=== PATIENT | female | born 1945 | race Caucasian/White ===

== ENCOUNTER 2017-12-12 09:30 | Inpatient (IN) | payer OTHER, MEDICARE ==
--- NOTE | 2017-12-11 21:20 | GHP ---
[f rep st] PREOP HISTORY AND PHYSICAL DATE OF ADMISSION: 12/12/2017 PROBLEM: Left hip arthritis. HISTORY OF PRESENT ILLNESS: The patient is a 72-year-old woman admitted for a left total hip arthroplasty. She lives in [place], [place]. She is having daily pain. She gets intermittent sharp jabbing pains. She occasionally has night pain. She does not take any pain medication. She exercises on her own on an elliptical machine. She has been told that she has some arthritis in her knees. PAST MEDICAL HISTORY: Excellent general health. No history of heart disease, stents, DVT, hepatitis, MRSA staph infections, sleep apnea, or bleeding problems. CURRENT MEDICATIONS: None. DRUG ALLERGIES: Sulfa. METAL ALLERGIES: None. LATEX ALLERGY: Yes. SOCIAL HISTORY: The patient is single. She does not smoke cigarettes or drink alcohol. She is retired. FAMILY HISTORY: Positive for arthritis and cancer. PHYSICAL EXAMINATION: VITAL SIGNS: Height 5 feet 4 inches. Weight 140 pounds. BMI 24. EYES: Conjunctivae and sclerae are clear. Pupils are round and reactive. MOUTH: Good oral hygiene. No loose teeth. CHEST: Clear. HEART: Regular rhythm. No murmurs. EXTREMITIES: Pertinent findings are limited to her left hip. She has full hip extension and 100 degrees of flexion. External rotation 20 degrees. Internal rotation 10 degrees. Abduction 30 degrees. Her films show severe degenerative arthritis of her left hip. She is bone on bone. Peripheral osteophytes are present. She might have minor narrowing of the cartilage space in her right hip. IMPRESSION ON ADMISSION: Left hip advanced degenerative arthritis. PLAN: She will undergo a left total hip arthroplasty. The surgery has been described to her, including the risks, complications, expectations, and recovery time. I have talked to her about the risk of dislocation, leg length inequality, infection, and sciatic nerve injury. The recovery time and rehabilitation have been reviewed with her. All her questions have been answered, and she consents to surgery. Copy requested to: [place], [place] /[id number]/MODL MTDD
[2017-12-12] MEDS ORDERED: TRANEXAMIC ACID 1,000 MG in NS 100 ML IV ONE (09:44)
[2017-12-12] MEDS ORDERED: ACETAMINOPHEN 325 MG TAB PO ONE (09:44)
[2017-12-12] MEDS ORDERED: TRANEXAMIC ACID 3,000 MG in NS (SYRINGE) 50 ML IRR ONE (09:44)
[2017-12-12] MEDS ORDERED: GABAPENTIN 300 MG CAP PO ONE (09:44)
[2017-12-12] MEDS ORDERED: ONDANSETRON 4 MG/2 ML VIAL IVP ONE (09:44)
[2017-12-12] MEDS ORDERED: DEXAMETHASONE 4 MG/ML VIAL IVP ONE (09:44)
[2017-12-12] MEDS ORDERED: ceFAZolin 2 GM/DEXTROSE 100 ML IV ONE (09:44)
[2017-12-12] MEDS ORDERED: ROPIVACAINE 0.2% 80 MG, EPINEPHrine 0.2 MG, KETOROLAC TROMETHAMINE 30 MG in SYRINGE 0 ML IU ONE (09:44)
[2017-12-12] MEDS ORDERED: FAMOTIDINE 20 MG TAB PO ONE (09:44)
[2017-12-12] MEDS ORDERED: POVIDONE-IODINE 20 ML in SODIUM CL IRRIG SOLUTION 500 ML IRR ONE (09:44)
[2017-12-12] MEDS ORDERED: LIDOCAINE 1% 2 ML INJ ID PRN (09:45)
[2017-12-12] MEDS ORDERED: LR 1,000 ML IV ONE (09:45)
[2017-12-12] MEDS ORDERED: ceFAZolin 1 GM/5 ML SYR ONE (10:34)
--- NOTE | 2017-12-12 10:57 | POSTANESTH ---
Post Anesthetic Evaluation Cardiovascular Status: Normal, Stable Respiratory Status: Normal, Stable Level of Consciousness/Mental Status: Can Participate in Eval, Mildly Sleepy, Arousable Pain Control: Adequate, Prn Tx Ordered Nausea/Vomiting Control: Adequate, Prn Tx Ordered Complications Possibly Related to Anesthesia: None Noted (LE still immobile secondary to spinal block.)
--- NOTE | 2017-12-12 10:59 | PDANEPAE ---
ANE History of Present Illness 72 yo female for L YANA. ANE Past Medical History - Cardiovascular History Hx Hypertension: No Hx Arrhythmias: No Hx Chest Pain: No Hx Coronary Artery / Peripheral Vascular Disease: No Hx CHF / Valvular Disease: No Hx Palpitations: No - Pulmonary History Hx COPD: No Hx Asthma/Reactive Airway Disease: No Hx Recent Upper Respiratory Infection: No Hx Oxygen in Use at Home: No Hx Sleep Apnea: No Sleep Apnea Screening Result - Last Documented: Negative - Neurologic History Hx Cerebrovascular Accident: No Hx Seizures: No Hx Dementia: No - Endocrine History Hx Diabetes: No - Renal History Hx Renal Disorders: No - Liver History Hx Hepatic Disorders: No - Neurological & Psychiatric Hx Hx Neurological and Psychiatric Disorders: Yes Neurological / Psychiatric History Comment: anxiety - Cancer History Hx Cancer: No - Congenital Disorder History Hx Congenital Disorders: No - GI History GERD: mild Hx Gastrointestinal Disorders: Yes Gastrointestinal History Comment: chronic constipation and digestive issues- uses supplements. hx of reflux- no symptoms currently - Other Health History Other Health History: reading glasses - Chronic Pain History Chronic Pain: Yes (left knee and hip) - Surgical History Prior Surgeries: 2009 ovary removed d/t cysts ANE Review of Systems Review of Systems: - Exercise capacity METS (RN): 4 METS - Systems Constitutional: Reports: no symptoms EENMT: Reports: nose congestion (allergy flare) Cardiac: Reports: no symptoms Respiratory: Reports: no symptoms ANE Patient History - Allergies Allergies/Adverse Reactions: latex Allergy (Verified 12/07/17 17:55) "affects my tissues, swelling, itching, burning" Sulfa (Sulfonamide Antibiotics) Allergy (Verified 12/07/17 17:55) "so long ago i don't remember" - Home Medications Home Medications: Ascorbic Acid [Vitamin C 250 mg (*)] 250 mg PO DAILY 12/01/17 [Last Taken ] Cholecalciferol Vit D3 [Vitamin D3 (*)] 1,000 units PO DAILY 12/01/17 [Last Taken 12/05/17] Glucosamine/MSM/Chondroitin A [Glucosamine Chondroit MSM Tab] 1 each PO DAILY [Last Taken 12/05/17] Herbals/Supplements -Info Only 1 ea PO DAILY 12/01/17 [Last Taken 12/05/17] Multivitamins [Multivitamin (*)] 1 each PO DAILY 12/01/17 [Last Taken 12/05/17] - NPO status NPO Since - Liquids (Date): 12/12/17 NPO Since - Liquids (Time): 08:00 NPO Since - Solids (Date): 12/11/17 NPO Since - Solids (Time): 19:00 - Anes Hx Anes Hx: post operative cognitive dysfunction Hx Anesthesia Complications (with details): pt had AMS for 3-4 months after 2009 surgery - Smoking Hx Smoking Status: Former smoker Marijuana use: Yes - Family Anes Hx Family Anes Hx: neg - N/A Family Hx Anesthesia Complications: none ANE Labs/Vital Signs - Vital Signs Blood Pressure: 100/69 Heart Rate: 65 Respiratory Rate: 18 O2 Sat (%): 94 Height: 162.56 cm Weight: 63.503 kg ANE Physical Exam - Airway Neck exam: FROM Mallampati Score: Class 2 - Pulmonary Pulmonary: no respiratory distress - Cardiovascular Cardiovascular: regular rate and rhythym - ASA Status ASA Status: II ANE Anesthesia Plan Anesthesia Plan: spinal
[2017-12-12] MEDS ORDERED: BUPIVACAINE/DEXTROSE 7.5MG/ML 2 ML SPINAL AMP SP ONE (11:29)
--- NOTE | 2017-12-12 11:30 | PDHPUP ---
History & Physical Update H&P update statement: This history and physical update is based on an assessment of the patient which was completed after admission or registration (within 24 hours), but prior to the surgery/procedure. H&P update: H&P reviewed & patient examined
[2017-12-12] MEDS ORDERED: fentaNYL 100 MCG/2 ML INJ ONE (12:06)
[2017-12-12] MEDS ORDERED: PROPOFOL/EMULSION 500 MG/50 ML BOTTLE IV ONE (12:06)
[2017-12-12] MEDS ORDERED: LIDOCAINE 2% 5 ML SDV ONE (12:06)
[2017-12-12] MEDS ORDERED: DIAZEPAM 5 MG/ML 1 ML SYR IVP PRN (13:39)
[2017-12-12] MEDS ORDERED: NALOXONE HCL 0.4 MG/ML INJ IVP PRN (13:39)
[2017-12-12] MEDS ORDERED: ALBUTEROL 3 ML DEYVIAL IH PRN (13:39)
[2017-12-12] MEDS ORDERED: LR 500 ML IV PRN (13:39)
[2017-12-12] MEDS ORDERED: oxyCODONE IR 5 MG TAB PO PRN ×2 (13:39→14:19)
[2017-12-12] MEDS ORDERED: fentaNYL 100 MCG/2 ML INJ IVP PRN (13:39)
[2017-12-12] MEDS ORDERED: ACETAMINOPHEN 500 MG TAB PO PRN (13:39)
[2017-12-12] MEDS ORDERED: PROMETHAZINE HCL 25 MG/ML INJ IVP PRN ×2 (13:39→14:19)
--- NOTE | 2017-12-12 13:40 | POSTOPPROG ---
Post Op Note Date of Operation: 12/12/17 Surgeon: Rafael Amor Boiler/Chiller Operator: Gallito Mix/Clau Anesthesiologist: Dr. Marcelo Anesthesia: IV Sedation, Spinal Post-op Diagnosis: Left hip severe degenerative arthritis Procedure: Left total hip arthroplasty Inf/Abcess present in the surg proc area at time of surgery?: No EBL: 100-500
[2017-12-12] MEDS ORDERED: CYCLOBENZAPRINE 10 MG TAB PO PRN (14:19)
[2017-12-12] MEDS ORDERED: ONDANSETRON 4 MG/2 ML VIAL IVP PRN (14:19)
[2017-12-12] MEDS ORDERED: BISACODYL 10 MG SUPP PR PRN (14:19)
[2017-12-12] MEDS ORDERED: MAGNESIUM HYDROXIDE 30 ML UDCUP PO PRN (14:19)
[2017-12-12] MEDS ORDERED: LACTULOSE 20 GM/30 ML UDCUP PO PRN (14:19)
[2017-12-12] MEDS ORDERED: METOCLOPRAMIDE 10 MG/2 ML VIAL IVP PRN (14:19)
[2017-12-12] MEDS ORDERED: NS 500 ML IV PRN (14:19)
[2017-12-12] MEDS ORDERED: PROMETHAZINE HCL 25 MG SUPPR PR PRN (14:19)
[2017-12-12] MEDS ORDERED: POLYETHYLENE GLYCOL 3350 17 GM PKT PO PRN (14:19)
[2017-12-12] MEDS ORDERED: ONDANSETRON DISINTEGRATING 4 MG TAB PO PRN (14:19)
[2017-12-12] MEDS ORDERED: diphenhydrAMINE 25 MG CAP PO PRN (14:19)
[2017-12-12] MEDS ORDERED: TEMAZEPAM 15 MG CAP PO PRN (14:19)
[2017-12-12] MEDS ORDERED: DIPHENOXYLATE/ATROPINE LOMOTIL 1 TAB PO PRN (14:19)
--- NOTE | 2017-12-12 14:25 | GOP ---
[f rep st] OPERATIVE REPORT DATE OF OPERATION: 12/12/2017 SURGEON: Rafael Amor MD PSYCHIATRIC ARNP: Tyree Mix PAC and Rainer Olguin CFA ANESTHESIA: Combination of Marcaine, spinal, and IV sedation. ANESTHESIOLOGIST: Miesha Marcelo MD PREOPERATIVE DIAGNOSIS: Left hip severe degenerative arthritis. POSTOPERATIVE DIAGNOSIS: Left hip severe degenerative arthritis. PROCEDURE PERFORMED: Left total hip arthroplasty, ceramic femoral head on highly cross-linked polyet hylene cup liner. FINDINGS: DESCRIPTION OF PROCEDURE: The patient was given 2 g of IV Ancef preoperatively within 60 minutes of surgery. She also received IV tranexamic acid at a dose of 1000 mg. She was placed on the operating room table and given spinal anesthesia with Marcaine by Dr. Marcelo. She was then placed supine and given IV sedation. A Lazaro catheter was not used. She wore a CHARI stocking and SCD on the nonoperat mary lou leg. She was rolled to the right lateral decubitus position. The position was secured with the pegboard table attachment. An axillary roll was used, and all pressure points were carefully padded. I was careful to lock her pelvis in a vertical position. Her perineum was isolated with plastic ad hesive drapes. The left hip and left lower extremity were prepped with ChloraPrep. They were draped free using sterile sheets, stockinette, and Ioban plastic adhesive drapes. The [facility] time-out was performed to verify the correct surgical side and site, and the correct patient id entity. The [place] time-out was also performed. I made a 4-5 inch straight oblique posterolateral hip skin incision. Subcutaneous tissues were sharp ly divided, and hemostasis was obtained using electrocautery. The fascia kina was identified and spl it along the axis of its fibers. I curved posteriorly and proximally, and split the fascia of gluteu s balta and bluntly split the muscle fibers in line with their orientation. The Charnley self-cody ining retractor was inserted. Her sciatic nerve was located, partially exposed, and protected throug hout the procedure. The external rotators and the posterior hip capsule were divided as separate lay ers at the base of the femoral neck, tagged, and reflected posteriorly. A smooth 8-inch Steinmann pi n was inserted vertically into the ilium, superior to the acetabulum. An 8-inch drill bit was insert ed vertically into the greater trochanter and parallel to the first pin. The distance between the 2 was measured for leg length reference. Her femoral head was dislocated posteriorly. Severe degenera tive changes were present on the femoral head. The femoral neck was osteotomized at the appropriate level and inclination. I was careful to preserve all the posterior capsule and most of the anterior capsule. The remnant of her damaged labrum was excised. I prepared the femur first. This allowed me to dog sitter the amount of natural femoral neck anteversion. This, in turn, allowed me to later determine the correct amount of cup anteversion. She had approx imately 15 degrees of natural femoral neck anteversion. The canal was opened laterally with a box ch carlos. I reamed and then hand broached sequentially up to size 4. The size 4 high offset Accolade II broach was used as a trial stem. I was careful to lateralize adequately. Appropriate retractors were inserted to expose the acetabulum. The acetabulum was reamed sequentiall y up to 51 mm. I selected a 52 mm Marvin Tritanium Trident II cluster hole hemispherical shell. Th is was tapped securely into place in the proper degree of inclination anteversion. I used the transv erse acetabular ligament and other acetabular bony landmarks to help me properly orient the cup. Sup plemental screw fixation was not necessary. I performed a series of trial reductions and confirmed t hat the size 4 high offset stem with the -2.5 mm neck and a 36 mm head with a 0 degree liner gave me the proper combination of appropriate length and good anterior and posterior stability. I took an intraoperative cross-table AP pelvis x-ray. This demonstrated correct sizing and position of the acetabulum and the femoral component. Leg lengths looked appropriate. The 0 degree Jackson X3 highly cross-linked polyethylene liner was inserted and tapped securely into place. The Marvin Accolade II high offset stem in size 4 was inserted press-fit, and was very tight fit. I did 1 final trial reduction and confirmed that the -2.5 mm neck length with a 36 mm head was the proper combination. I selected the Jackson Biolox Delta ceramic head with an outside diameter o f 36 mm and a neck length of -2.5 mm. This was tapped securely onto the clean trunnion. The acetabu lum was irrigated and cleaned, and the hip was reduced 1 final time. 40 mL of the joint anesthetic cocktail were injected into the capsule, the deep musculature, and the subcutaneous tissues around the skin edges. The joint was thoroughly irrigated 1 final time with a d ilute Betadine solution. A solution of tranexamic acid was irrigated onto the wound and left to sit for several minutes. Her sciatic nerve was reinspected and looked unharmed. The external rotators a nd the posterior hip capsule were repaired in separate layers with #2 FiberWire sutures through drill holes in the greater trochanter. Her fascia kina was closed first with 2 [id number] #2 FiberWi re sutures, followed by a running #2 barbed Ethicon Stratafix PDO suture. The subcutaneous tissues w ere closed with a running 0 barbed Ethicon Stratafix Monoderm suture. The skin was closed with a run keyla 3-0 barbed Ethicon Stratafix Monoderm subcuticular suture. The skin edges were reapproximated a nd sealed with Dermabond glue. The wound was covered with a large Mepilex waterproof sterile dressin g. The Mepilex sacral dressing was also applied. A long-leg CHARI stocking and SCD were applied to her left lower extremity. She wore a stocking and SC D on the opposite leg during the procedure. An abduction pillow was placed between her knees. She w as awakened from anesthesia and rolled to the supine position on her [facility]. She was taken to PACU in satisfactory condition. There were no recognized intraoperative complications. The estimated blood loss was about 300 mL. Sponge and needle count were correct on 2 occasions. I used a Marvin Tritanium hemispherical cluster hole, Trident 2 acetabular shell with an outside blair meter of 52 mm. The liner was a Marvin X3 0-degree highly cross-linked liner with an inside diamete r of 36 mm. The femoral component was a high offset Accolade II stem in a size 4 and press-fit. The femoral head was a Jackson Biolox Delta head with a -2.5 mm neck length and a 36 mm outside diameter . Gallito Mix and Rainer Olguin acted as surgical assistants. Their assistance was a medical necess ity for safe completion of the procedure. Copy requested to: [facility] [place] /[id number]/MODL
[2017-12-12] MEDS ORDERED: LR 1,000 ML IV SCH (14:30)
--- NOTE | 2017-12-12 15:04 | PDMN ---
Medical Necessity Medical necessity: [facility] IP only surgery; cpt 63324 L YANA
[2017-12-12] MEDS: traMADol 50 MG TAB PO PRN ×2 (16:44→23:55)
[2017-12-12] MEDS: ACETAMINOPHEN 325 MG TAB PO SCH ×2 (18:15→23:55)
[2017-12-12] MEDS: KETOROLAC 15 MG/1 ML SDV IVP SCH ×2 (18:24→23:55)
[2017-12-12] MEDS: ceFAZolin 2 GM/DEXTROSE 100 ML IV SCH ×2 (18:24→23:56)
[2017-12-12] MEDS ORDERED: RANITIDINE HCL 150 MG PO PRN (18:35)
[2017-12-12] MEDS: SENNOSIDES/DOCUSATE SODIUM TAB PO SCH (21:00)
[2017-12-12] MEDS: FAMOTIDINE 20 MG TAB PO SCH (21:01)
[2017-12-12] MEDS: ASPIRIN 325 MG TAB PO SCH (21:01)
[2017-12-12] MEDS ORDERED: ceFAZolin 2 GM/DEXTROSE 100 ML IV SCH (22:00)
[2017-12-13] MEDS: KETOROLAC 15 MG/1 ML SDV IVP SCH ×2 (05:47→13:07)
[2017-12-13] MEDS: ACETAMINOPHEN 325 MG TAB PO SCH ×2 (05:48→13:48)
[2017-12-13] MEDS: traMADol 50 MG TAB PO PRN (05:48)
[2017-12-13] MEDS ORDERED: FERROUS SULFATE 140 MG TAB.ER PO SCH (09:00)
[2017-12-13 09:13] VITALS: BP 90/46
--- NOTE | 2017-12-13 09:26 | ASMTCASEMG ---
Living Arrangements What is your living Answers: Alone arrangement? Who do you live with? Type Of Residence What kind of residence do Answers: House you live in? Discharge Plan Comments Coordination Status Comments Notes: Pt is a 72 y/o female for a total hip surgry. Therapies have been ordered and awaiting recommendations. Needs are TBD at this time. CM to follow. Plan: TBD Date Signed: 12/13/2017 09:25 AM Electronically Signed By:DILEEP Gayle
--- NOTE | 2017-12-13 09:52 | SOAPPROG ---
SOAP Progress Note Assessment/Plan: Assessment: Afebrile. Awake and alert. She has been up and walking in the v[place]. Mild pain. Sciatic nerve intact. Hemoglobin and hematocrit are good. Postop films look good. Her her dressing is dry. No swelling. Plan: Continue physical therapy today. Discharge today. She is driving back to [employer] [facility] [employer] on [address] today. 12/13/17 09:51 Objective: Vital Signs Temp Pulse Resp BP Pulse Ox 36.5 C 70 16 90/46 L 99 12/13/17 08:00 12/13/17 08:00 12/13/17 08:00 12/13/17 08:00 12/13/17 08:00 Laboratory Results 12/13/17 04:12 12/12/17 12/13/17 12/14/17 05:59 05:59 05:59 Intake Total 1090 Output Total 1375 Balance -285 ICD10 Worksheet Patient Problems: Problems Problem Status Onset Osteoarthritis of left hip Acute
--- NOTE | 2017-12-13 10:01 | ASMTCMCOM ---
CM Note CM Note Notes: CM spoke to Dr. Amor regarding d/c POC. Pt will not have any d/c needs. Pt will attend outpatient rehab. CM available for changes. Plan: Independent Date Signed: 12/13/2017 10:00 AM Electronically Signed By:DILEEP Gayle
--- NOTE | 2017-12-13 10:10 | GDS ---
[f rep st] DISCHARGE SUMMARY DISCHARGE DIAGNOSIS: Left hip severe degenerative arthritis. DISCHARGE DIAGNOSIS: Left hip severe degenerative arthritis. OPERATION PERFORMED: 12/12/2017, left total hip arthroplasty, ceramic femoral head on highly cross-l inked polyethylene cup liner. POSTOPERATIVE COMPLICATIONS: None. CONDITION ON DISCHARGE: Improved. DESCRIPTION OF HOSPITAL COURSE: The patient was admitted to the hospital on the morning of surgery. Her preoperative CBC was normal. The same day, under a combination of Marcaine, spinal, and IV adali tion, she underwent a left total hip arthroplasty. Postoperatively, she was treated with multimodal DVT prophylaxis, including aspirin. On the first po stoperative day, her hemoglobin and hematocrit were 11.2 and 34.2. She was seen by Physical Therapy and made excellent progress with ambulation and stairs. By the time of discharge, she was afebrile, her wound was clean and dry, and she was independent walking with a walker. DISPOSITION: Patient is discharged to her home in [place], [place]. She may progress to full weig htbearing on the left as tolerated. Use an abduction pillow in bed for 3 weeks. CHARI stockings for 1 week. Aspirin 325 mg p.o. daily for 21 days. She has prescriptions for Celebrex, oxycodone and tra madol for pain control. If there any problems, she is to call me at the office. I will see her back in the office in 3 weeks. Copy requested to: [place], [place] /[id number]/MODL
--- NOTE | 2017-12-13 10:10 | ASMTLACE ---
JUVENCIO Length of stay for Answers: 1 day current admission Acuity / Level of Answers: Yes Care: Did the patient have an inpatient admission? Comorbidities - select Answers: Opioid dependence all that apply / Chronic pain Other Notes: GERD # of Emergency department Answers: 0 visits in the last 6 months Social determinants Answers: Mental health diagnosis (anxiety, depression, pers onality disorders, etc.) Score: 12 Date Signed: 12/13/2017 10:09 AM Electronically Signed By:DILEEP Gayle
[2017-12-13] MEDS ORDERED: traMADol 50 MG TAB PO ONE (10:15)
[2017-12-13] MEDS: SENNOSIDES/DOCUSATE SODIUM TAB PO SCH (10:17)
[2017-12-13] MEDS: FAMOTIDINE 20 MG TAB PO SCH (10:19)
[2017-12-13] MEDS: ASPIRIN 325 MG TAB PO SCH (13:48)
== END 2017-12-13 16:15 | disposition home or self-care (01) | DRG 470 ==
LOC: F3N 09:30
PROVIDERS: ADMIT Orthopaedic Surgery; ATTEND Orthopaedic Surgery
PROC: 0SRB04Z Replacement of Left Hip Joint with Ceramic on Polyethylene Synthetic Substitute, Open Approach (ICD-10-PCS; principal; 2017-12-12 11:15)
DX: M16.12 Unilateral primary osteoarthritis, left hip (principal)
CPT/HCPCS: 97110-GP; 97161-GP; 97165-GO; 97535-GO; G8978-GP-CI; G8979-GP-CI; G8980-GP-CI; G8987-GO-CI; G8988-GO-CI; G8989-GO-CI; J0171; J0690; J1100; J1885; J2405; J2704; J2795; J3010